=== PATIENT | female | born 1950 | race American Indian/Alaskan Native ===

== ENCOUNTER 2016-09-12 09:56 | Emergency (ER) | payer MEDICAID, OTHER ==
[2016-09-12 10:02] VITALS: BMI 37.1
[2016-09-12 10:18] VITALS: RESP 18; TEMP 98.2
--- NOTE | 2016-09-12 10:27 | C.PDOC ---
History Of Present Illness 66 year old patient, wit a past medical history of hypertension, hypercholesterolemia, and arthritis, presents to the ED complaining of intermittent episodes of right hip pain that radiates into her thigh and knee. Patient states the pain is dull and throbbing. She was taking Percocet last year and it helped. Patient denies fever, chills, shortness of breath, chest pain, back pain, numbness or weakness. Time Seen by Provider: 09/12/16 10:07 Chief Complaint (Nursing): Lower Extremity Problem/Injury History Per: Patient History/Exam Limitations: no limitations Onset/Duration Of Symptoms: Intermittent Episodes Current Symptoms Are (Timing): Still Present Severity: Mild Pain Scale Rating Of: 3 Recent travel outside of the [place]: No Past Medical History Reviewed: Historical Data, Nursing Documentation, Vital Signs Vital Signs: Last Vital Signs Temp 98.2 F 09/12/16 10:03 Pulse 77 09/12/16 10:03 Resp 18 09/12/16 10:03 BP 150/88 09/12/16 10:03 Pulse Ox 97 09/12/16 10:03 - Medical History PMH: HTN, Hypercholesterolemia Family History: States: Unknown Family Hx - Social History Hx Tobacco Use: Yes Hx Alcohol Use: No Hx Substance Use: No - Immunization History Hx Tetanus Toxoid Vaccination: No Hx Influenza Vaccination: Yes Hx Pneumococcal Vaccination: No Review Of Systems Except As Marked, All Systems Reviewed And Found Negative. Constitutional: Negative for: Fever, Chills Cardiovascular: Negative for: Chest Pain Respiratory: Negative for: Shortness of Breath Musculoskeletal: Positive for: Other (right hip into right thigh and right knee) . Negative for: Back Pain Neurological: Negative for: Weakness, Numbness Physical Exam - Physical Exam Appears: Non-toxic, No Acute Distress Skin: Warm, Dry Head: Atraumatic, Normacephalic Neck: Normal ROM, Supple Chest: Symmetrical Cardiovascular: Rhythm Regular Respiratory: Normal Breath Sounds, No Rales, No Rhonchi, No Wheezing Gastrointestinal/Abdominal: Soft, No Tenderness Back: Normal Inspection, No CVA Tenderness, No Vertebral Tenderness Extremity: Normal ROM, No Pedal Edema, No Calf Tenderness, Capillary Refill (<2 seconds), No Deformity, No Swelling Extremity: Bilateral: Atraumatic Neurological/Psych: Oriented x3, Normal Motor, Normal Sensation Gait: Steady ED Course And Treatment O2 Sat by Pulse Oximetry: 97 (room air) Pulse Ox Interpretation: Normal Progress Note: Plan: Tylenol, Naproxen Disposition Counseled Patient/Family Regarding: Diagnosis, Need For Followup, Rx Given - Disposition Referrals: Qing Curiel MD [Primary Care Provider] - Feroz Jerome MD [Non-Staff] - Disposition: HOME/ ROUTINE Disposition Time: 11:42 Condition: STABLE Prescriptions: Naproxen [Naprosyn] 1 tab PO BID PRN #25 tab PRN Reason: Pain Instructions: Chronic Pain (ED) Forms: General Discharge Instructions - POA Present On Arrival: None - Clinical Impression Clinical Impression: Arthritis, Joint pain - Scribe Statement The provider has reviewed the documentation as recorded by the Scribdaphne Curiel Provider Attestation: All medical record entries made by the Scribe were at my direction and personally dictated by me. I have reviewed the chart and agree that the record accurately reflects my personal performance of the history, physical exam, medical decision making, and the department course for this patient. I have also personally directed, reviewed, and agree with the discharge instructions and disposition.
[2016-09-12] MEDS ORDERED: Naproxen 550 mg Tab PO STA (10:55)
[2016-09-12] MEDS ORDERED: Naproxen 550 mg Tab PO ONE (11:02)
[2016-09-12 12:09] VITALS: BP 139/75; PULSE 75; O2SAT 98
== END 2016-09-12 12:10 | disposition home or self-care (01) ==
LOC: C.ER 09:56 → SUPCPDRO 09:56 → C.ER 12:10
DX: M16.11 Unilateral primary osteoarthritis, right hip (principal)

== ENCOUNTER 2017-02-26 18:08 | Emergency (ER) | payer OTHER, MEDICAID ==
[2017-02-26 18:08] VITALS: BMI 37.1
[2017-02-26 18:22] VITALS: RESP 18; O2SAT 97
[2017-02-26 19:56] LABS: BASO # 0.1 K/uL (0.0-0.2); EOS # 0.3 K/uL (0.0-0.7); EOS % 3.2 % (0.0-4.0); HEMATOCRIT 43.8 % (34.0-47.0); LYMPH # 2.1 K/uL (1.0-4.3); LYMPH % 25.6 % (20.0-40.0); MEAN CELL VOLUME 92.1 fL (81.0-99.0); MEAN CORPUSCULAR HEMOGLOBIN 30.4 pg (27.0-31.0); MEAN PLATELET VOLUME 7.8 fL (7.2-11.7); MONO # 0.5 K/uL (0.0-0.8); MONO % 6.1 % (0.0-10.0); RED CELL DISTRIBUTION WIDTH 14.2 % (11.5-14.5); WHITE BLOOD COUNT 8.4 K/uL (4.8-10.8)
[2017-02-26 20:09] LABS: ALB/GLOB RATIO 1.4 (1.0-2.1); ALCOHOL SERUM 103 mg/dl (0-10); ALKALINE PHOSPHATASE 43 U/L (38-126); ALT/SGPT 30 U/L (9-52); AST/SGOT 20 U/L (14-36); BILIRUBIN,TOTAL 0.6 mg/dL (0.2-1.3); BLOOD UREA NITROGEN 19 mg/dL (7-17); CALCIUM 8.9 mg/dl (8.6-10.4); CARBON DIOXIDE 32 mmol/L (22-30); CHLORIDE 102 mmol/L (98-107); GFR AFRICAN-AMERICAN > 60; GLUCOSE,RANDOM 92 mg/dL (65-105); POTASSIUM 3.9 mmol/L (3.6-5.2); SODIUM 142 mmol/L (132-148); TOTAL PROTEIN 6.7 g/dL (6.3-8.3)
--- NOTE | 2017-02-26 20:24 | C.PDOC ---
History Of Present Illness 66 y/o female brought to ED by son stating that patient wanted to harm herself while at home. Patient was in an argument with her children and stated she was going to harm herself. Upon arrival to ED patient states she does not feel that way any longer and states she was only upset at children. Patient denies suicidal ideation, homicidal ideation, hearing voice or hallucinations. No other complaints at this time. Time Seen by Provider: 02/26/17 19:29 Chief Complaint (Nursing): Psychiatric Evaluation History Per: Patient, Family History/Exam Limitations: no limitations Onset/Duration Of Symptoms: Hrs Current Symptoms Are (Timing): Still Present Suicide/Self Injury Attempted (Context): None Modifying Factor(s): None Past Medical History Reviewed: Historical Data, Nursing Documentation, Vital Signs Vital Signs: Last Vital Signs Temp 98.7 F 02/26/17 20:30 Pulse 78 02/26/17 20:30 Resp 18 02/26/17 20:30 BP 112/73 02/26/17 20:30 Pulse Ox 97 02/26/17 20:30 - Medical History PMH: HTN, Hypercholesterolemia Surgical History: No Surg Hx Family History: States: No Known Family Hx - Social History Hx Tobacco Use: Yes Hx Alcohol Use: Yes Hx Substance Use: No - Immunization History Hx Tetanus Toxoid Vaccination: No Hx Influenza Vaccination: No Hx Pneumococcal Vaccination: No Review Of Systems Constitutional: Negative for: Fever, Chills Cardiovascular: Negative for: Chest Pain Respiratory: Negative for: Shortness of Breath Gastrointestinal: Negative for: Nausea, Vomiting Skin: Negative for: Rash Neurological: Negative for: Weakness, Numbness Psych: Negative for: Anxiety, Suicidal ideation Physical Exam - Physical Exam Appears: Non-toxic, No Acute Distress Skin: Normal Color, Warm, Dry, No Rash Head: Atraumatic, Normacephalic Eye(s): bilateral: Normal Inspection Oral Mucosa: Moist Neck: Supple Chest: Symmetrical Cardiovascular: Rhythm Regular Respiratory: Normal Breath Sounds, No Rales, No Rhonchi, No Wheezing Gastrointestinal/Abdominal: Soft, No Tenderness, No Guarding, No Rebound Extremity: Normal ROM, Capillary Refill (<2 seconds) Neurological/Psych: Oriented x3, Normal Speech, Normal Motor, Normal Sensation Gait: Steady ED Course And Treatment - Laboratory Results Result Diagrams: 02/26/17 19:44 02/26/17 19:44 O2 Sat by Pulse Oximetry: 97 (RA) Pulse Ox Interpretation: Normal Medical Decision Making Medical Decision Making: Patient evaluated by crisis and was medically cleared by them Assessment: Anxiety Patient advised to follow up with Dr. Curiel in clinic Disposition Counseled Patient/Family Regarding: Studies Performed, Diagnosis, Need For Followup - Disposition Referrals: Qing Curiel MD [Staff Provider] - Disposition: HOME/ ROUTINE Disposition Time: 18:23 Condition: GOOD Additional Instructions: follow up with your doctor in 2 days call to make an appointment continue your home medications return to hospital if symptoms worsens or progress Instructions: Anxiety (ED) Forms: [facility] (Belarusian), General Discharge Instructions - Clinical Impression Clinical Impression: Anxiety - Scribe Statement The provider has reviewed the documentation as recorded by the Zoeyibdaphne Olivier All medical record entries made by the Zoeyibdaphne were at my direction and personally dictated by me. I have reviewed the chart and agree that the record accurately reflects my personal performance of the history, physical exam, medical decision making, and the department course for this patient. I have also personally directed, reviewed, and agree with the discharge instructions and disposition.
[2017-02-26 20:31] VITALS: BP 112/73; PULSE 78; TEMP 98.7
== END 2017-02-26 20:31 | disposition home or self-care (01) ==
LOC: C.ER 18:08
DX: F41.9 Anxiety disorder, unspecified (principal)
CPT/HCPCS: 80053; 85025; 99284; G0480

== ENCOUNTER 2018-05-07 12:47 | Observation (INO) | payer MEDICARE, MEDICAID ==
[2018-05-07 12:47] VITALS: BMI 37.1
[2018-05-07] MEDS ORDERED: Sodium Chloride 0.9% 1,000 ML IV ONE (14:54)
[2018-05-07] MEDS ORDERED: Sodium Chloride 0.9% 1,000 ML ONE (15:06)
[2018-05-07 15:25] LABS: BASO # 0.1 K/uL (0.0-0.2); BASO % 0.8 % (0.0-2.0); EOS # 0.1 K/uL (0.0-0.7); HEMOGLOBIN 13.3 g/dL (11.0-16.0); LYMPH # 1.4 K/uL (1.0-4.3); MEAN CELL VOLUME 91.7 fL (81.0-99.0); MEAN CORPUSCULAR HEMOGLOBIN 29.5 pg (27.0-31.0); MEAN CORPUSCULAR HGB CONC 32.2 g/dL (33.0-37.0); MONO # 0.6 K/uL (0.0-0.8); MONO % 8.9 % (0.0-10.0); NEUT % 69.3 % (50.0-75.0); NRBC % 0.1 % (0.0-2.0); RBC 4.52 Mil/uL (3.80-5.20); RED CELL DISTRIBUTION WIDTH 14.5 % (11.5-14.5); WHITE BLOOD COUNT 7.2 K/uL (4.8-10.8)
--- NOTE | 2018-05-07 15:31 | C.PDOC ---
History Of Present Illness 68 y/o female presents to the ER complaining of epigastric abdominal pain which has been present for the past 3 days. Patient states that she has decreased appetite and mild nausea. Patient reports that she is taking shallow breaths and her breathing is not normal. Denies having fever, chills, CP, vomiting, dysuria, and hematuria. she states that she is normally compliant with her medications but has not taken her BP meds today. Time Seen by Provider: 05/07/18 14:41 Chief Complaint (Nursing): Abdominal Pain History Per: Patient History/Exam Limitations: no limitations Onset/Duration Of Symptoms: Days Current Symptoms Are (Timing): Still Present Severity: Moderate Past Medical History Reviewed: Historical Data, Nursing Documentation, Vital Signs Vital Signs: Last Vital Signs Temp 98.6 F 05/07/18 13:10 Pulse 99 H 05/07/18 13:10 Resp 20 05/07/18 13:10 BP 153/100 H 05/07/18 13:10 Pulse Ox 96 05/07/18 13:10 - Medical History PMH: HTN, Hypercholesterolemia Denies: Diabetes, Hepatitis, HIV, Seizures, Sexually Transmitted Disease Surgical History: No Surg Hx Family History: States: No Known Family Hx - Social History Hx Tobacco Use: Yes Hx Alcohol Use: Yes Hx Substance Use: No - Immunization History Hx Tetanus Toxoid Vaccination: No Hx Influenza Vaccination: No Hx Pneumococcal Vaccination: No Review Of Systems Constitutional: Negative for: Fever, Chills Cardiovascular: Negative for: Chest Pain Respiratory: Positive for: Other (shallow breathing) Gastrointestinal: Positive for: Nausea (mild nausea), Abdominal Pain. Negative for: Vomiting Physical Exam - Physical Exam Appears: Non-toxic, No Acute Distress Skin: Normal Color, Warm, Dry Head: Atraumatic, Normacephalic Eye(s): bilateral: Normal Inspection Nose: Normal Oral Mucosa: Moist Neck: Supple Chest: Symmetrical Cardiovascular: Rhythm Regular Respiratory: Normal Breath Sounds, No Rales, No Rhonchi, No Wheezing Gastrointestinal/Abdominal: Soft, Tenderness (mild epigastric tenderness), No Guarding, No Rebound Neurological/Psych: Oriented x3, Normal Speech ED Course And Treatment - Laboratory Results Result Diagrams: 05/07/18 15:17 05/07/18 15:17 Lab Interpretation: Normal ECG: Interpreted By Me ECG Rhythm: Sinus Rhythm (with left axis and occ PVC) ECG Interpretation: No Acute Changes O2 Sat by Pulse Oximetry: 96 (RA) Pulse Ox Interpretation: Normal - Radiology CXR: Interpreted by Me CXR Interpretation: Yes: Cardiomegaly (with mild vascular congestion) Reevaluation Time: 17:26 Reassessment Condition: Unchanged - Physician Consult Information Time Consulting Physician Contacted: 17:27 Physician Contacted: Qing Curiel Outcome Of Conversation: Patient to be admitted to [facility] for BP management. Medical Decision Making Medical Decision Making: Plan: --Labs --UA --ECG --CXR --Protonix IV --IV Fluids Disposition - Disposition Disposition: HOSPITALIZED Disposition Time: 17:28 Condition: FAIR - POA Present On Arrival: None - Clinical Impression Clinical Impression: Abdominal pain, Uncontrolled hypertension - Scribe Statement The provider has reviewed the documentation as recorded by the Zoeyibdaphne Regan Provider Attestation: All medical record entries made by the Scribe were at my direction and personally dictated by me. I have reviewed the chart and agree that the record accurately reflects my personal performance of the history, physical exam, medical decision making, and the department course for this patient. I have also personally directed, reviewed, and agree with the discharge instructions and disposition.
[2018-05-07 15:44] LABS: ALB/GLOB RATIO 1.3 (1.0-2.1); ALBUMIN 3.9 g/dL (3.5-5.0); ALT/SGPT 29 U/L (9-52); AST/SGOT 30 U/L (14-36); BLOOD UREA NITROGEN 16 mg/dL (7-17); CALCIUM 9.1 mg/dl (8.6-10.4); GFR NON-AFRICAN AMERICAN 55; LIPASE 123 U/L (23-300)
--- NOTE | 2018-05-07 15:52 | RAD ---
HISTORY: abd pain COMPARISON: Chest x-ray performed 12/19/12 TECHNIQUE: Chest, one view. FINDINGS: LUNGS: Mild pulmonary venous congestion. No focal consolidation. Please note that chest x-ray has limited sensitivity for the detection of pulmonary masses. PLEURA: No significant pleural effusion identified. No definite pneumothorax . CARDIOVASCULAR: Cardiomegaly with CTR approximately 21.4/27.6. Pericardial effusion is not excluded. OSSEOUS STRUCTURES: Degenerative changes. VISUALIZED UPPER ABDOMEN: Unremarkable. OTHER FINDINGS: None. IMPRESSION: Mild pulmonary venous congestion. Cardiomegaly with CTR approximately 21.4/27.6. Pericardial effusion is not excluded.
[2018-05-07 16:12] LABS: SQUAMOUS EPITHIAL 16 /hpf (0-5); URINE BACTERIA OCC (<OCC); URINE BILIRUBIN NEGATIVE (NEGATIVE); URINE BLOOD NEGATIVE (NEGATIVE); URINE CLARITY Hazy (Clear); URINE COLOR Yellow (YELLOW); URINE GLUCOSE (UA) NORMAL (Normal); URINE LEUKOCYTE ESTERASE NEG Leu/uL (Negative); URINE PROTEIN NEGATIVE (NEGATIVE); URINE UROBILINOGEN NORMAL mg/dL (0.2-1.0)
[2018-05-07 17:10] LABS: B-TYPE NATRIURETIC PEPTIDE 89.7 pg/mL (0-900)
--- NOTE | 2018-05-07 19:08 | CP.PCM.HP ---
Past Patient History - Infectious Disease Hx of Infectious Diseases: None - Past Social History Smoking Status: Current Some Days Smoker - CARDIAC Hx Hypercholesterolemia: Yes Hx Hypertension: Yes - PULMONARY Hx Tuberculosis: No - NEUROLOGICAL Hx Seizures: No - HEMATOLOGICAL/ONCOLOGICAL Hx Human Immunodeficiency Virus (HIV): No - GENITOURINARY/GYNECOLOGICAL Hx Sexually Transmitted Disorders: No - PSYCHIATRIC Hx Substance Use: No - SURGICAL HISTORY Hx Tubal Ligation: Yes Other/Comment: D&C - ANESTHESIA Hx Anesthesia: Yes Hx Anesthesia Reactions: No Meds Home Medications: Home Medication List Medication Instructions Recorded Confirmed Type RX: hydrALAZINE [Apresoline] 50 mg PO Q8 #90 tab 05/09/18 Rx Allergies/Adverse Reactions: Allergies Allergy/AdvReac Type Severity Reaction Status Date / Time No Known Allergies Allergy Verified 05/07/18 13:12 Physical Exam - Constitutional Appears: Well - Head Exam Head Exam: ATRAUMATIC, NORMAL INSPECTION, NORMOCEPHALIC - Eye Exam Eye Exam: EOMI, Normal appearance, PERRL Pupil Exam: NORMAL ACCOMODATION, PERRL - ENT Exam ENT Exam: Mucous Membranes Moist, Normal Exam - Neck Exam Neck exam: Positive for: Normal Inspection - Respiratory Exam Respiratory Exam: Decreased Breath Sounds - Cardiovascular Exam Cardiovascular Exam: REGULAR RHYTHM, +S1, +S2 - GI/Abdominal Exam GI & Abdominal Exam: Diminished Bowel Sounds, Soft - Rectal Exam Rectal Exam: Deferred Results - Vital Signs Recent Vital Signs: Last Vital Signs Temp 98.6 F 05/07/18 13:10 Pulse 75 05/07/18 18:14 Resp 18 05/07/18 18:14 BP 151/92 H 05/07/18 18:46 Pulse Ox 95 05/07/18 18:14 - Labs Result Diagrams: 05/07/18 15:17 05/07/18 15:17 Labs: Laboratory Results - last 24 hr 05/07/18 05/07/18 05/07/18 15:17 15:17 15:17 WBC 7.2 RBC 4.52 Hgb 13.3 Hct 41.5 MCV 91.7 MCH 29.5 MCHC 32.2 L RDW 14.5 Plt Count 186 MPV 8.0 Neut % (Auto) 69.3 Lymph % (Auto) 19.0 L [place] % (Auto) 8.9 Eos % (Auto) 2.0 Baso % (Auto) 0.8 Neut # (Auto) 5.0 Lymph # (Auto) 1.4 [place] # (Auto) 0.6 Eos # (Auto) 0.1 Baso # (Auto) 0.1 Sodium 142 Potassium 3.7 Chloride 106 Carbon Dioxide 30 Anion Gap 10 BUN 16 Creatinine 1.0 Est GFR ( Amer) > 60 Est GFR (Non-Af Amer) 55 Random Glucose 83 Calcium 9.1 Total Bilirubin 0.7 AST 30 ALT 29 Alkaline Phosphatase 52 Troponin I < 0.0120 NT-Pro-B Natriuret Pep 89.7 Total Protein 6.9 Albumin 3.9 Globulin 2.9 Albumin/Globulin Ratio 1.3 Lipase 123 Urine Color Urine Clarity Urine pH Ur Specific [place] Urine Protein Urine Glucose (UA) Urine Ketones Urine Blood Urine Nitrate Urine Bilirubin Urine Urobilinogen Ur Leukocyte Esterase Urine WBC (Auto) Urine RBC (Auto) Ur Squamous Epith Cells Urine Bacteria 05/07/18 15:57 WBC RBC Hgb Hct MCV MCH MCHC RDW Plt Count MPV Neut % (Auto) Lymph % (Auto) [place] % (Auto) Eos % (Auto) Baso % (Auto) Neut # (Auto) Lymph # (Auto) [place] # (Auto) Eos # (Auto) Baso # (Auto) Sodium Potassium Chloride Carbon Dioxide Anion Gap BUN Creatinine Est GFR ( Amer) Est GFR (Non-Af Amer) Random Glucose Calcium Total Bilirubin AST ALT Alkaline Phosphatase Troponin I NT-Pro-B Natriuret Pep Total Protein Albumin Globulin Albumin/Globulin Ratio Lipase Urine Color Yellow Urine Clarity Hazy Urine pH 5.0 Ur Specific [place] 1.023 Urine Protein Negative Urine Glucose (UA) Normal Urine Ketones Negative Urine Blood Negative Urine Nitrate Negative Urine Bilirubin Negative Urine Urobilinogen Normal Ur Leukocyte Esterase Neg Urine WBC (Auto) 4 Urine RBC (Auto) 3 Ur Squamous Epith Cells 16 H Urine Bacteria Occ H
[2018-05-07 19:30] VITALS: RESP 20
[2018-05-08] MEDS: Enoxaparin 40 mg Syringe SC SCH (11:25)
--- NOTE | 2018-05-08 19:32 | CP.PCM.PN ---
Subjective - Date & Time of Evaluation Date of Evaluation: 05/08/18 Time of Evaluation: 10:15 - Subjective Subjective: clinically same Objective - Vital Signs/Intake and Output Vital Signs (last 24 hours): Temp Pulse Resp BP Pulse Ox 98.4 F 67 20 139/86 98 05/08/18 16:25 05/08/18 16:25 05/08/18 16:25 05/08/18 16:25 05/08/18 16:25 Intake and Output: 05/08/18 05/09/18 18:59 06:59 Intake Total 400 Balance 400 - Medications Medications: Current Medications Carvedilol (Coreg) 6.25 mg PO Q12 [facility] Last Admin: 05/08/18 11:27 Dose: 6.25 mg Enoxaparin Sodium (Lovenox) 40 mg SC DAILY [facility] Last Admin: 05/08/18 11:25 Dose: 40 mg Hydralazine HCl (Apresoline) 50 mg PO Q8 [facility] Last Admin: 05/08/18 14:13 Dose: 50 mg Hydrochlorothiazide (Hydrodiuril) 25 mg PO DAILY [facility] Last Admin: 05/08/18 11:26 Dose: 25 mg Rosuvastatin Calcium (Crestor) 5 mg PO HS [facility] Last Admin: 05/07/18 21:25 Dose: 5 mg - Labs Labs: 05/07/18 15:17 05/07/18 15:17 - Constitutional Appears: Well - Head Exam Head Exam: ATRAUMATIC, NORMAL INSPECTION, NORMOCEPHALIC - Eye Exam Eye Exam: EOMI, Normal appearance, PERRL Pupil Exam: NORMAL ACCOMODATION, PERRL - ENT Exam ENT Exam: Mucous Membranes Moist, Normal Exam - Neck Exam Neck Exam: Full ROM, Normal Inspection. absent: Lymphadenopathy - Respiratory Exam Respiratory Exam: Decreased Breath Sounds - Cardiovascular Exam Cardiovascular Exam: REGULAR RHYTHM, +S1, +S2 - GI/Abdominal Exam GI & Abdominal Exam: Soft, Diminished Bowel Sounds - Rectal Exam Rectal Exam: Deferred
[2018-05-09 07:48] VITALS: BP 127/78; TEMP 97.9; O2SAT 96
[2018-05-09 08:50] VITALS: PULSE 82
[2018-05-09] MEDS: Enoxaparin 40 mg Syringe SC SCH (10:24)
--- NOTE | 2018-05-09 17:55 | CP.PCM.PN ---
Subjective - Date & Time of Evaluation Date of Evaluation: 05/09/18 Time of Evaluation: 11:00 - Subjective Subjective: Alert, awake, no sob or chst pains, BP controlled. Objective - Vital Signs/Intake and Output Vital Signs (last 24 hours): Temp Pulse Resp BP Pulse Ox 97.9 F 82 20 127/78 96 05/09/18 07:05 05/09/18 08:08 05/09/18 07:05 05/09/18 07:05 05/09/18 07:05 Intake and Output: 05/09/18 05/09/18 06:59 18:59 Intake Total 480 380 Balance 480 380 - Labs Labs: 05/07/18 15:17 05/07/18 15:17 Assessment and Plan - Assessment and Plan (Free Text) Assessment: 68 year old female admitted with abdominal pain and uncontrolled HTN, seen and examined. Alert and orientedx3, denies any sob or chest pains. Discussed with DR Tony Curiel, plan to discharge home on present medications today. Advised to follow up in 1 week, also to see a heat plant specialist for outpatient work up.
== END 2018-05-09 13:35 | disposition home or self-care (01) ==
LOC: C.ER 12:47 → C.9E 17:32 → C.6T 18:04
PROVIDERS: ADMIT Internal Medicine Nephrology; ATTEND Internal Medicine Nephrology
DX: R10.13 Epigastric pain (principal); I10 Essential (primary) hypertension; F17.210 Nicotine dependence, cigarettes, uncomplicated; E78.00 Pure hypercholesterolemia, unspecified
CPT/HCPCS: 71045; 80053; 81001; 83690; 83880; 84484; 85025; 96372; 96374; 99285; C9113; G0378; J1650; J7030

== ENCOUNTER 2018-08-19 09:08 | Observation (INO) | payer MEDICARE, MEDICAID ==
[2018-08-19 09:08] VITALS: BMI 37.1
--- NOTE | 2018-08-19 09:52 | C.PDOC ---
History Of Present Illness 68 y/o female,w/PMhx of HTN and arthritis, presents to the ER complaining of cough which has been present for the past few days. Patient states that she was evaluated by her PMD, Dr.J Wagner who referred her to the ER.Denies having fe marika,chills,CP,SOB,nausea, vomiting, and abdominal pain. Time Seen by Provider: 08/19/18 09:15 Chief Complaint (Nursing): Medical Clearance History Per: Patient History/Exam Limitations: no limitations Onset/Duration Of Symptoms: Days Current Symptoms Are (Timing): Still Present Severity: Moderate Past Medical History Reviewed: Historical Data, Nursing Documentation, Vital Signs Vital Signs: Last Vital Signs Temp 97.8 F 08/19/18 09:33 Pulse 74 08/19/18 09:33 Resp 18 08/19/18 09:33 BP 122/76 08/19/18 09:33 Pulse Ox 97 08/19/18 09:33 Primary Care Provider: Qing Wagner - Medical History PMH: Arthritis, HTN, Hypercholesterolemia Denies: Diabetes, Hepatitis, HIV, Seizures, Sexually Transmitted Disease Other Surgeries: Hx of surgeries Family History: States: No Known Family Hx - Social History Hx Tobacco Use: Yes Hx Alcohol Use: Yes Hx Substance Use: No - Immunization History Hx Tetanus Toxoid Vaccination: No Hx Influenza Vaccination: No Hx Pneumococcal Vaccination: No Review Of Systems Except As Marked, All Systems Reviewed And Found Negative. Constitutional: Negative for: Fever, Chills Cardiovascular: Negative for: Chest Pain Respiratory: Positive for: Cough. Negative for: Shortness of Breath Gastrointestinal: Negative for: Nausea, Vomiting, Abdominal Pain Physical Exam - Physical Exam Appears: Non-toxic, No Acute Distress Skin: Normal Color, Warm, Dry Head: Atraumatic, Normacephalic Eye(s): bilateral: Normal Inspection Nose: Normal Oral Mucosa: Moist Throat: Normal, No Erythema, No Exudate Neck: Supple Chest: Symmetrical Cardiovascular: Rhythm Regular Respiratory: Normal Breath Sounds, No Rales, No Rhonchi, No Wheezing Gastrointestinal/Abdominal: Normal Exam, Soft, No Tenderness, No Guarding, No Rebound Neurological/Psych: Oriented x3, Normal Speech ED Course And Treatment - Laboratory Results Result Diagrams: 08/19/18 10:17 08/19/18 10:17 O2 Sat by Pulse Oximetry: 97 (RA) Pulse Ox Interpretation: Normal Medical Decision Making Medical Decision Making: sent by pmd for eval - cough/outpt pet (+)Plan: -Labs --CXR labs neg. discussed with dr wagner. outpt pet scan (+)for mass. accepted dr wagner for biopsy. Disposition - Disposition Disposition: HOSPITALIZED Disposition Time: 13:17 Condition: STABLE - Clinical Impression Clinical Impression: Lung mass - Scribe Statement The provider has reviewed the documentation as recorded by the Karey Regan Provider Attestation: All medical record entries made by the Zoeyibe were at my direction and personally dictated by me. I have reviewed the chart and agree that the record accurately reflects my personal performance of the history, physical exam, medical decision making, and the department course for this patient. I have also personally directed, reviewed, and agree with the discharge instructions and disposition.
--- NOTE | 2018-08-19 10:12 | RAD ---
Date of service: 08/19/2018 HISTORY: Chest pain COMPARISON: 05/07/2018 TECHNIQUE: Chest PA and lateral FINDINGS: LUNGS: Two new small rounded nodular densities projecting over the left mid and lower lung zone which were not well appreciated on the prior study. Correlation with chest CT and or follow-up chest x-ray may be helpful to better delineate these nodular densities. Mild venous congestion. Bibasilar breast shadows. PLEURA: No significant pleural effusion identified. No pneumothorax apparent. CARDIOVASCULAR: Enlarged ectatic aorta. Cardiomegaly. OSSEOUS STRUCTURES: Degenerative changes in the spine. VISUALIZED UPPER ABDOMEN: Normal. OTHER FINDINGS: None. IMPRESSION: Two new small rounded nodular densities projecting over the left mid and lower lung zone which were not well appreciated on the prior study. Correlation with chest CT and or follow-up chest x-ray may be helpful to better delineate these nodular densities. Mild venous congestion. Bibasilar breast shadows.
[2018-08-19 10:28] LABS: BASO # 0.1 K/uL (0.0-0.2); BASO % 0.8 % (0.0-2.0); EOS # 0.2 K/uL (0.0-0.7); EOS % 2.7 % (0.0-4.0); HEMOGLOBIN 13.7 g/dL (11.0-16.0); LYMPH # 1.6 K/uL (1.0-4.3); LYMPH % 21.5 % (20.0-40.0); MEAN CELL VOLUME 89.4 fL (81.0-99.0); MEAN CORPUSCULAR HEMOGLOBIN 30.7 pg (27.0-31.0); MEAN CORPUSCULAR HGB CONC 34.3 g/dL (33.0-37.0); MONO # 0.5 K/uL (0.0-0.8); MONO % 7.2 % (0.0-10.0); NEUT # 5.1 K/uL (1.8-7.0); NEUT % 67.8 % (50.0-75.0); NRBC % 0.3 % (0.0-2.0); RBC 4.47 Mil/uL (3.80-5.20); WHITE BLOOD COUNT 7.6 K/uL (4.8-10.8)
[2018-08-19 10:34] LABS: PARTIAL THROMBOPLASTIN TIME 28.7 SECONDS (21-34); PROTHROMBIN TIME 11.3 SECONDS (9.7-12.2)
[2018-08-19 10:45] LABS: ALB/GLOB RATIO 1.3 (1.0-2.1); ALBUMIN 4.2 g/dL (3.5-5.0); CALCIUM 9.5 mg/dl (8.6-10.4)
--- NOTE | 2018-08-19 14:51 | CP.PCM.HP ---
Past Patient History - Infectious Disease Hx of Infectious Diseases: None - Past Social History Smoking Status: Heavy Smoker > 10 Cigarettes Daily - CARDIAC Hx Hypercholesterolemia: Yes Hx Hypertension: Yes - PULMONARY Hx Tuberculosis: No - NEUROLOGICAL Hx Seizures: No - HEMATOLOGICAL/ONCOLOGICAL Hx Human Immunodeficiency Virus (HIV): No - MUSCULOSKELETAL/RHEUMATOLOGICAL Hx Arthritis: Yes - GENITOURINARY/GYNECOLOGICAL Hx Sexually Transmitted Disorders: No - PSYCHIATRIC Hx Substance Use: No - SURGICAL HISTORY Hx Tubal Ligation: Yes Other/Comment: D&C - ANESTHESIA Hx Anesthesia: Yes Hx Anesthesia Reactions: No Meds Allergies/Adverse Reactions: Allergies Allergy/AdvReac Type Severity Reaction Status Date / Time No Known Allergies Allergy Verified 08/19/18 09:23 Physical Exam - Constitutional Appears: Well - Head Exam Head Exam: ATRAUMATIC, NORMAL INSPECTION, NORMOCEPHALIC - Eye Exam Eye Exam: EOMI, Normal appearance, PERRL Pupil Exam: NORMAL ACCOMODATION, PERRL - ENT Exam ENT Exam: Mucous Membranes Moist, Normal Exam - Neck Exam Neck exam: Positive for: Normal Inspection - Respiratory Exam Respiratory Exam: Decreased Breath Sounds - Cardiovascular Exam Cardiovascular Exam: REGULAR RHYTHM, +S1, +S2 - GI/Abdominal Exam GI & Abdominal Exam: Diminished Bowel Sounds, Soft - Rectal Exam Rectal Exam: Deferred - Neurological Exam Neurological exam: Oriented x3 Results - Vital Signs Recent Vital Signs: Last Vital Signs Temp 97.8 F 08/19/18 09:33 Pulse 74 08/19/18 09:41 Resp 18 08/19/18 09:41 BP 104/71 08/19/18 09:41 Pulse Ox 97 08/19/18 13:17 - Labs Result Diagrams: 08/19/18 10:17 08/19/18 10:17 Labs: Laboratory Results - last 24 hr 08/19/18 08/19/18 08/19/18 10:17 10:17 10:17 WBC 7.6 RBC 4.47 Hgb 13.7 Hct 39.9 MCV 89.4 D MCH 30.7 MCHC 34.3 RDW 15.0 H Plt Count 230 MPV 8.0 Neut % (Auto) 67.8 Lymph % (Auto) 21.5 [place] % (Auto) 7.2 Eos % (Auto) 2.7 Baso % (Auto) 0.8 Neut # (Auto) 5.1 Lymph # (Auto) 1.6 [place]age # (Auto) 0.5 Eos # (Auto) 0.2 Baso # (Auto) 0.1 PT 11.3 INR 1.0 APTT 28.7 Sodium 140 Potassium 4.0 Chloride 102 Carbon Dioxide 27 Anion Gap 16 BUN 24 H Creatinine 1.1 Est GFR ( Amer) 60 Est GFR (Non-Af Amer) 49 Random Glucose 101 D Calcium 9.5 Total Bilirubin 0.7 AST 23 ALT 19 Alkaline Phosphatase 47 Total Protein 7.3 Albumin 4.2 Globulin 3.1 Albumin/Globulin Ratio 1.3 Blood Type Antibody Screen 08/19/18 10:17 WBC RBC Hgb Hct MCV MCH MCHC RDW Plt Count MPV Neut % (Auto) Lymph % (Auto) [place] % (Auto) Eos % (Auto) Baso % (Auto) Neut # (Auto) Lymph # (Auto) [place] # (Auto) Eos # (Auto) Baso # (Auto) PT INR APTT Sodium Potassium Chloride Carbon Dioxide Anion Gap BUN Creatinine Est GFR ( Amer) Est GFR (Non-Af Amer) Random Glucose Calcium Total Bilirubin AST ALT Alkaline Phosphatase Total Protein Albumin Globulin Albumin/Globulin Ratio Blood Type O POSITIVE Antibody Screen Negative
[2018-08-19 18:12] VITALS: RESP 20
[2018-08-20] MEDS ORDERED: Midazolam 2 MG/2 ML VIAL ONE (09:36)
[2018-08-20] MEDS ORDERED: Lidocaine Hydrochloride 5 ML INJ ONE (09:37)
[2018-08-20] MEDS ORDERED: Enoxaparin 40 mg Syringe SC SCH (10:00)
--- NOTE | 2018-08-20 10:24 | PCM.SURG1 ---
Surgeon's Initial Post Op Note - Surgeon's Notes Surgeon: Bernard Trejo MD Revenue Accountant: NONE Type of Anesthesia: IV Sedation Pre-Operative Diagnosis: Left anterior mediastinal mass, lung mass Operative Findings: CT showed large anterior mediastinal mass with calcification. There is a large pericardial effusion. Post-Operative Diagnosis: Left anterior mediastinal mass, lung mass Operation Performed: CT guided core biopsy. Four 20 g specimen obtained. Specimen/Specimens Removed: 20 g core x 4 Estimated Blood Loss: EBL {In ML}: 3 Blood Products Given: N/A Drains Used: No Drains Post-Op Condition: Fair Date of Surgery/Procedure: 08/20/18 Time of Surgery/Procedure: 10:20
--- NOTE | 2018-08-20 10:35 | CT ---
PROCEDURE: Date of procedure: 08/20/2018 Procedure: 1. CT-guided lung mass biopsy, 2. CT Guidance for biopsy, [address] Radiation: 1227.31 MGy-cm Medications: The patient was sedated by anesthesiologist along with physiologic monitoring. HISTORY: Left anterior mediastinal mass, lung mass. TECHNIQUE: Following informed consent and procedure time out, the patient was placed supine on the CT table and noncontrast CT scan was performed. Noncontrast CT scan confirmed the presence of a 7.5 cm left anterior mediastinal lung mass. There is also a large pericardial effusion. a skin localizer was placed on the patient's LEFT chest and a repeat CT scan was performed. The skin was marked, prepped, and draped in the usual sterile fashion. After the skin was anesthetized with lidocaine and the patient sedated by the anesthesiologist, a 20 gauge core needle was advanced percutaneously under direct CT guidance into the mass. Upon confirmation of needle position, four 20-gauge core specimens were obtained and sent for routine pathology and flow cytometery. The needle was removed and a xeroform dressing was applied. A post biopsy CT scan showed no pneumothorax. IMPRESSION: CT guided core biopsy left lung mass. There were no immediate complications.
--- NOTE | 2018-08-20 13:37 | RAD ---
Date of service: 08/20/2018 HISTORY: Status post left lung mass biopsy COMPARISON: Comparison chest dated 08/19/2018. TECHNIQUE: 1 view obtained. FINDINGS: LUNGS: No definitive radiographic evidence of pneumothorax. PLEURA: No significant pleural effusion identified, no pneumothorax apparent. CARDIOVASCULAR: No aortic atherosclerotic calcification present. Cardiomegaly. No pulmonary vascular congestion. OSSEOUS STRUCTURES: No significant abnormalities. VISUALIZED UPPER ABDOMEN: Normal. OTHER FINDINGS: None. IMPRESSION: No definitive radiographic evidence of pneumothorax. Cardiomegaly.
[2018-08-20 16:25] VITALS: O2SAT 96
--- NOTE | 2018-08-20 19:47 | CP.PCM.PN ---
Subjective - Date & Time of Evaluation Date of Evaluation: 08/20/18 - Subjective Subjective: patient examined today no nausea, no vomiting, no dizziness, no diarrhea, no fever no shortness of breath Objective - Vital Signs/Intake and Output Vital Signs (last 24 hours): Temp Pulse Resp BP Pulse Ox 97.7 F 74 20 99/62 L 96 08/20/18 15:00 08/20/18 15:00 08/20/18 15:00 08/20/18 15:00 08/20/18 15:00 Intake and Output: 08/20/18 08/21/18 18:59 06:59 Intake Total 0 Balance 0 - Medications Medications: Current Medications Carvedilol (Coreg) 6.25 mg PO BID [facility] Last Admin: 08/20/18 19:36 Dose: Not Given Enoxaparin Sodium (Lovenox) 40 mg SC DAILY [facility] Ergocalciferol (Drisdol 50,000 Intl Units Cap) 1 cap PO Q7D [facility] Furosemide (Lasix) 20 mg IVP DAILY [facility] Last Admin: 08/20/18 13:00 Dose: Not Given Hydralazine HCl (Apresoline) 50 mg PO BID [facility] Last Admin: 08/20/18 19:36 Dose: Not Given Hydrochlorothiazide (Hydrodiuril) 25 mg PO DAILY [facility] Last Admin: 08/20/18 13:00 Dose: Not Given Pneumococcal Polyvalent Vaccine (Pneumovax 23 Vaccine) 0.5 ml IM .ONCE ONE Stop: 08/21/18 10:01 Rosuvastatin Calcium (Crestor) 5 mg PO HS [facility] Last Admin: 08/19/18 22:27 Dose: Not Given - Labs Labs: 08/19/18 10:17 08/19/18 10:17 PT 11.3 SECONDS (9.7-12.2) 08/19/18 10:17 INR 1.0 08/19/18 10:17 APTT 28.7 SECONDS (21-34) 08/19/18 10:17 - Constitutional Appears: Well - Head Exam Head Exam: ATRAUMATIC, NORMAL INSPECTION, NORMOCEPHALIC - Eye Exam Eye Exam: EOMI, Normal appearance, PERRL Pupil Exam: NORMAL ACCOMODATION, PERRL - ENT Exam ENT Exam: Mucous Membranes Moist, Normal Exam - Neck Exam Neck Exam: Full ROM, Normal Inspection. absent: Lymphadenopathy - Respiratory Exam Respiratory Exam: Decreased Breath Sounds - Cardiovascular Exam Cardiovascular Exam: REGULAR RHYTHM, +S1, +S2 - GI/Abdominal Exam GI & Abdominal Exam: Soft, Diminished Bowel Sounds - Rectal Exam Rectal Exam: Deferred - Neurological Exam Neurological Exam: Oriented x3 Assessment and Plan - Assessment and Plan (Free Text) Plan: Status post biopsy reports pending Discussed with the family No pneumothorax medications reviewed labs reviewed vitals reviewed plan discussed with patient and family moderate complexity of care apresoline coreg crestor drisdol hydrodiuril lasix lovenox
[2018-08-20 23:22] VITALS: TEMP 98.1
[2018-08-21 07:39] VITALS: PULSE 74
--- NOTE | 2018-08-21 08:27 | CP.PCM.DIS ---
Provider - Provider Date of Admission: 08/19/18 10:46 Attending physician: Brenda Curiel MD Consults: 08/19/18 19:51 Physician Consult Routine Comment: Consulting Provider: Deb Stanton Consulting Physician: Deb Stanton Reason for Consult: stat Additional Comments: biopsy Time Spent in preparation of Discharge (in minutes): 20 Hospital Course - Lab Results Lab Results: Most Recent Lab Values WBC 7.6 K/uL (4.8-10.8) 08/19/18 10:17 RBC 4.47 Mil/uL (3.80-5.20) 08/19/18 10:17 Hgb 13.7 g/dL (11.0-16.0) 08/19/18 10:17 Hct 39.9 % (34.0-47.0) 08/19/18 10:17 MCV 89.4 fL (81.0-99.0) D 08/19/18 10:17 MCH 30.7 pg (27.0-31.0) 08/19/18 10:17 MCHC 34.3 g/dL (33.0-37.0) 08/19/18 10:17 RDW 15.0 % (11.5-14.5) H 08/19/18 10:17 Plt Count 230 K/uL (130-400) 08/19/18 10:17 MPV 8.0 fL (7.2-11.7) 08/19/18 10:17 Neut % (Auto) 67.8 % (50.0-75.0) 08/19/18 10:17 Lymph % (Auto) 21.5 % (20.0-40.0) 08/19/18 10:17 [place] % (Auto) 7.2 % (0.0-10.0) 08/19/18 10:17 Eos % (Auto) 2.7 % (0.0-4.0) 08/19/18 10:17 Baso % (Auto) 0.8 % (0.0-2.0) 08/19/18 10:17 Neut # (Auto) 5.1 K/uL (1.8-7.0) 08/19/18 10:17 Lymph # (Auto) 1.6 K/uL (1.0-4.3) 08/19/18 10:17 [place] # (Auto) 0.5 K/uL (0.0-0.8) 08/19/18 10:17 Eos # (Auto) 0.2 K/uL (0.0-0.7) 08/19/18 10:17 Baso # (Auto) 0.1 K/uL (0.0-0.2) 08/19/18 10:17 PT 11.3 SECONDS (9.7-12.2) 08/19/18 10:17 INR 1.0 08/19/18 10:17 APTT 28.7 SECONDS (21-34) 08/19/18 10:17 Sodium 140 mmol/L (132-148) 08/19/18 10:17 Potassium 4.0 mmol/L (3.6-5.2) 08/19/18 10:17 Chloride 102 mmol/L (98-107) 08/19/18 10:17 Carbon Dioxide 27 mmol/L (22-30) 08/19/18 10:17 Anion Gap 16 (10-20) 08/19/18 10:17 BUN 24 mg/dL (7-17) H 08/19/18 10:17 Creatinine 1.1 mg/dL (0.7-1.2) 08/19/18 10:17 Est GFR ( Amer) 60 08/19/18 10:17 Est GFR (Non-Af Amer) 49 08/19/18 10:17 Random Glucose 101 mg/dL (65-105) D 08/19/18 10:17 Calcium 9.5 mg/dl (8.6-10.4) 08/19/18 10:17 Total Bilirubin 0.7 mg/dL (0.2-1.3) 08/19/18 10:17 AST 23 U/L (14-36) 08/19/18 10:17 ALT 19 U/L (9-52) 08/19/18 10:17 Alkaline Phosphatase 47 U/L (38-126) 08/19/18 10:17 Total Protein 7.3 g/dL (6.3-8.3) 08/19/18 10:17 Albumin 4.2 g/dL (3.5-5.0) 08/19/18 10:17 Globulin 3.1 gm/dL (2.2-3.9) 08/19/18 10:17 Albumin/Globulin Ratio 1.3 (1.0-2.1) 08/19/18 10:17 Blood Type O POSITIVE 08/19/18 10:17 Antibody Screen Negative 08/19/18 10:17 - Hospital Course Hospital Course: I discharged today with the follow-up of the biopsy report as an outpatient patient understood for discharge patient advised not to resume anticoagulation for another couple of days Patient advised to come to my office next Saturday Status post biopsy of the lung nodules I discussed with Dr. Stanton No discharge Medications reviewed Moderate to high complexity of care. Plan of care discussed with patient &/or family & staff. Medications reviewed and reconciled. Labs reviewed. Vitals reviewed. Discharge Exam - Head Exam Head Exam: ATRAUMATIC, NORMAL INSPECTION, NORMOCEPHALIC - Eye Exam Eye Exam: EOMI, Normal appearance, PERRL Pupil Exam: NORMAL ACCOMODATION, PERRL - Respiratory Exam Respiratory Exam: Decreased Breath Sounds - Cardiovascular Exam Cardiovascular Exam: REGULAR RHYTHM, +S1, +S2 - GI/Abdominal Exam GI & Abdominal Exam: Diminished Bowel Sounds, Soft - Rectal Exam Rectal Exam: Deferred - Neurological Exam Neurological exam: Oriented x3 Discharge Plan - Follow Up Plan Condition: STABLE Disposition: HOME/ ROUTINE Instructions: High Blood Pressure in Adults Referrals: Qing Curiel MD [Staff Provider] -
[2018-08-21] MEDS ORDERED: Pneumococcal 23-Valent Vaccine IM ONE (10:00)
[2018-08-21 11:04] VITALS: BP 122/70
[2018-08-21] MEDS ORDERED: Ergocalciferol 50,000 Intl Units Cap PO SCH (18:30)
== END 2018-08-21 14:17 | disposition home or self-care (01) ==
LOC: C.ER 09:08 → C.9E 10:46 → C.3T 16:58 → C.9E 17:16 → C.3T 17:19
PROVIDERS: ADMIT Internal Medicine Nephrology; ATTEND Internal Medicine Nephrology
DX: R91.8 Other nonspecific abnormal finding of lung field (principal); I10 Essential (primary) hypertension; F17.210 Nicotine dependence, cigarettes, uncomplicated; R91.1 Solitary pulmonary nodule; E78.00 Pure hypercholesterolemia, unspecified; I31.3 Pericardial effusion (noninflammatory)
CPT/HCPCS: 32405; 71045; 71046; 80053; 85025; 85610; 85730; 86850; 86900; 88305; 99285; G0378; J1940; J2250; J3010